=== PATIENT | male | born 1955 | race African-American/Black ===

== ENCOUNTER 2018-06-27 12:48 | Outpatient (CLI) | payer MEDICARE, MEDICAID ==
--- NOTE | 2018-06-27 13:41 | Diagnostic Imaging Report ---
Indication: Cough Comparison: None 2 views of the chest obtained. Findings: Cardiomediastinal silhouette and pulmonary vascularity are within normal limits for age. The diaphragmatic contour is smooth and costophrenic angles are sharp. No pleural effusions are identified. The bones are unremarkable. There are surgical clips within the right axilla. Impression: No acute disease
== END 2018-06-27 14:48 | disposition home or self-care (01) ==
LOC: RAD 12:48
DX: R05 Cough (principal)
CPT/HCPCS: 71046